=== PATIENT | female | born 1980 | race Two or more races ===

== ENCOUNTER → 2017-11-03 | Outpatient (CLI) | payer MEDICAID ==
[2017-11-03 07:15] LABS: Basophils # (auto) 0 uL; Hemoglobin 8.4 g/dL (12.2-16.2); Lymphocytes # (auto) 1.5 uL; Monocytes # (auto) 0.4 uL; Nucleated Red Blood Cells % 0.1 %
[2017-11-03 07:18] LABS: Basophils % (auto) 0.4 % (0.0-2.0); Eosinophils # (auto) 0.2 uL; Eosinophils % (auto) 2.2 % (0.0-7.0); Hematocrit 27.5 % (36.0-46.0); Lymphocytes % (auto) 20.1 % (10.0-50.0); Mean Corpuscular Hemoglobin 19.4 pg (28.0-32.0); Mean Corpuscular Hgb Conc. 30.7 g/dL (32.0-36.0); Mean Corpuscular Volume 63.2 fL (80.0-100.0); Monocytes % (auto) 5.7 % (0.0-12.0); Neutrophils # (auto) 5.2 uL; Neutrophils % (auto) 71.6 % (37.0-80.0); Platelet Count (auto) 335 10^3/uL (140-450); Red Blood Cells 4.35 10^6/uL (4.0-5.20); Red Cell Distribution Width 19.6 % (11.8-14.3); White Blood Cell 7.3 10^3/uL (4.4-10.8)
[2017-11-03 08:46] LABS: Alcohol, Urine < 3.0 mg/dL (0-5); Amphetamine Screen, Urine NEGATIVE (NEGATIVE); Barbiturate Scree,Urine NEGATIVE (NEGATIVE); Benzodiazephine Screen, Urine NEGATIVE (NEGATIVE); Cannabinoid Screen, Urine NEGATIVE (NEGATIVE); Cocaine Screen, Urine NEGATIVE (NEGATIVE); Opiate Scree,Urine NEGATIVE (NEGATIVE); Phencyclidine Screen, Urine NEGATIVE (NEGATIVE)
[2017-11-03 09:00] LABS: RUBELLA Positive
[2017-11-04 04:08] LABS: RPR Non Reactive (Non Reactive)
== END | disposition home or self-care (01) ==
LOC: LAB 08:00
PROVIDERS: ATTEND Obstetrics & Gynecology
DX: O09.90 Supervision of high risk pregnancy, unspecified, unspecified trimester (principal); Z3A.00 Weeks of gestation of pregnancy not specified
CPT/HCPCS: 36415; 80307; 81220; 82951; 84702; 85025; 86592; 86703; 86762; 86850; 86900; 86901; 87086; 87340

== ENCOUNTER → 2018-02-03 | Outpatient (CLI) | payer MEDICAID | END | disposition home or self-care (01) | LOC: LAB 10:56 | PROVIDERS: ATTEND Obstetrics & Gynecology | DX: Z34.80 Encounter for supervision of other normal pregnancy, unspecified trimester (principal); R73.09 Other abnormal glucose; Z3A.00 Weeks of gestation of pregnancy not specified | CPT/HCPCS: 36415; 83036 ==

== ENCOUNTER 2018-04-16 11:34 | Observation (INO) | payer MEDICAID ==
[2018-04-16] MEDS ORDERED: FERR27TA2 PO (12:12)
[2018-04-16] MEDS ORDERED: PREN-96 PO (12:12)
== END 2018-04-16 12:30 | disposition home or self-care (01) | DRG 566 ==
LOC: LDRP 11:34
PROVIDERS: ADMIT Obstetrics & Gynecology; ATTEND Obstetrics & Gynecology
DX: O24.419 Gestational diabetes mellitus in pregnancy, unspecified control (principal); O09.523 Supervision of elderly multigravida, third trimester; Z3A.30 30 weeks gestation of pregnancy
CPT/HCPCS: 59025; 76818; 81002; 82948; 82962; G0378

== ENCOUNTER 2018-04-20 10:30 | Observation (INO) | payer MEDICAID ==
[~2018-04-20 10:30] MED LIST: FERR27TA2 PO; PREN-96 PO
== END 2018-04-20 12:15 | disposition home or self-care (01) | DRG 566 ==
LOC: LDRP 10:30
PROVIDERS: ADMIT Obstetrics & Gynecology; ATTEND Obstetrics & Gynecology
DX: O24.419 Gestational diabetes mellitus in pregnancy, unspecified control (principal); O09.523 Supervision of elderly multigravida, third trimester; Z3A.30 30 weeks gestation of pregnancy
CPT/HCPCS: 59025; 76818; 81002; G0378

== ENCOUNTER 2018-04-29 10:06 | Observation (INO) | payer MEDICAID ==
[2018-04-29] MEDS ORDERED: GLYB2.5T8 PO (11:01)
== END 2018-04-29 11:20 | disposition home or self-care (01) | DRG 566 ==
LOC: LDRP 10:06
PROVIDERS: ADMIT Specialist; ATTEND Specialist
DX: O24.419 Gestational diabetes mellitus in pregnancy, unspecified control (principal); O09.523 Supervision of elderly multigravida, third trimester; Z3A.32 32 weeks gestation of pregnancy
CPT/HCPCS: 59025; 76818; 81002; 82948; 82962; G0378

== ENCOUNTER 2018-05-04 11:30 | Observation (INO) | payer MEDICAID ==
[~2018-05-04 11:30] MED LIST changes: +GLYB2.5T8 PO
== END 2018-05-04 13:30 | disposition home or self-care (01) | DRG 566 ==
LOC: LDRP 11:30
PROVIDERS: ADMIT Obstetrics & Gynecology; ATTEND Obstetrics & Gynecology
DX: O24.419 Gestational diabetes mellitus in pregnancy, unspecified control (principal); Z3A.32 32 weeks gestation of pregnancy
CPT/HCPCS: 59025; 76818; 81002; 82948; 82962; G0378

== ENCOUNTER 2018-05-13 10:10 | Observation (INO) | payer MEDICAID | END 2018-05-13 11:20 | disposition home or self-care (01) | DRG 566 | LOC: LDRP 10:10 | PROVIDERS: ADMIT Obstetrics & Gynecology; ATTEND Obstetrics & Gynecology | DX: O24.419 Gestational diabetes mellitus in pregnancy, unspecified control (principal); O09.523 Supervision of elderly multigravida, third trimester; Z3A.34 34 weeks gestation of pregnancy | CPT/HCPCS: 59025; 76818; 81002; G0378 ==

== ENCOUNTER 2018-05-17 11:10 | Observation (INO) | payer MEDICAID ==
[~2018-05-17] VITALS: Ht 165.1 cm; Wt 108.9 kg
== END 2018-05-17 12:35 | disposition home or self-care (01) | DRG 566 ==
LOC: LDRP 11:10 → INTOOBSV 11:32 → OBSVTOIN 11:32
PROVIDERS: ADMIT Obstetrics & Gynecology; ATTEND Obstetrics & Gynecology
DX: O24.419 Gestational diabetes mellitus in pregnancy, unspecified control (principal); O09.523 Supervision of elderly multigravida, third trimester; Z3A.34 34 weeks gestation of pregnancy
CPT/HCPCS: 59025; 76818; 81002; 82948; G0378

== ENCOUNTER 2018-05-20 19:57 | Observation (INO) | payer MEDICAID | END 2018-05-20 21:10 | disposition home or self-care (01) | DRG 566 | LOC: LDRP 19:57 | PROVIDERS: ADMIT Specialist; ATTEND Specialist | DX: O24.419 Gestational diabetes mellitus in pregnancy, unspecified control (principal); O09.523 Supervision of elderly multigravida, third trimester; Z3A.35 35 weeks gestation of pregnancy | CPT/HCPCS: 59025; 76818; 81002; 82948; G0378 ==

== ENCOUNTER 2018-05-24 11:00 | Observation (INO) | payer MEDICAID | END 2018-05-24 12:15 | disposition home or self-care (01) | DRG 566 | LOC: LDRP 11:00 | PROVIDERS: ADMIT Specialist; ATTEND Specialist | DX: O24.419 Gestational diabetes mellitus in pregnancy, unspecified control (principal); O09.523 Supervision of elderly multigravida, third trimester; Z3A.35 35 weeks gestation of pregnancy | CPT/HCPCS: 59025; 76818; 81002; 82962; G0378 ==

== ENCOUNTER 2018-05-27 11:06 | Observation (INO) | payer MEDICAID | END 2018-05-27 13:15 | disposition home or self-care (01) | DRG 566 | LOC: LDRP 11:06 | PROVIDERS: ADMIT Specialist; ATTEND Specialist | DX: O24.419 Gestational diabetes mellitus in pregnancy, unspecified control (principal); O09.523 Supervision of elderly multigravida, third trimester; Z3A.36 36 weeks gestation of pregnancy | CPT/HCPCS: 59025; 76818; 81002; 82948; 82962; G0378 ==

== ENCOUNTER 2018-05-31 11:01 | Observation (INO) | payer MEDICAID | END 2018-05-31 12:15 | disposition home or self-care (01) | DRG 566 | LOC: LDRP 11:01 | PROVIDERS: ADMIT Obstetrics & Gynecology; ATTEND Obstetrics & Gynecology | DX: O24.419 Gestational diabetes mellitus in pregnancy, unspecified control (principal); O09.523 Supervision of elderly multigravida, third trimester; Z3A.36 36 weeks gestation of pregnancy | CPT/HCPCS: 59025; 76818; 81002; G0378 ==

== ENCOUNTER 2018-06-03 19:58 | Observation (INO) | payer MEDICAID | END 2018-06-03 21:05 | disposition home or self-care (01) | DRG 566 | LOC: LDRP 19:58 | PROVIDERS: ADMIT Specialist; ATTEND Specialist | DX: O24.419 Gestational diabetes mellitus in pregnancy, unspecified control (principal); O09.523 Supervision of elderly multigravida, third trimester; Z3A.37 37 weeks gestation of pregnancy | CPT/HCPCS: 59025; 76818; 81002; 82962; G0378 ==

== ENCOUNTER 2018-06-07 11:14 | Observation (INO) | payer MEDICAID | END 2018-06-07 13:00 | disposition home or self-care (01) | DRG 566 | LOC: LDRP 11:14 | PROVIDERS: ADMIT Obstetrics & Gynecology; ATTEND Obstetrics & Gynecology | DX: O24.419 Gestational diabetes mellitus in pregnancy, unspecified control (principal); O09.523 Supervision of elderly multigravida, third trimester; Z3A.37 37 weeks gestation of pregnancy | CPT/HCPCS: 59025; 76818; 81002; 82948; G0378 ==

== ENCOUNTER 2018-06-10 18:56 | Observation (INO) | payer MEDICAID | END 2018-06-10 20:01 | disposition home or self-care (01) | DRG 566 | LOC: LDRP 18:56 | PROVIDERS: ADMIT Specialist; ATTEND Specialist | DX: O24.419 Gestational diabetes mellitus in pregnancy, unspecified control (principal); O09.523 Supervision of elderly multigravida, third trimester; Z3A.38 38 weeks gestation of pregnancy | CPT/HCPCS: 59025; 76818; 81002; 82962; G0378 ==

== ENCOUNTER 2018-06-14 13:37 | Observation (INO) | payer MEDICAID ==
[~2018-06-14] VITALS: Ht 165.1 cm; Wt 108.9 kg
== END 2018-06-15 20:23 | disposition home or self-care (01) | DRG 566 ==
LOC: LDRP 06-15 18:49
PROVIDERS: ADMIT Obstetrics & Gynecology; ATTEND Obstetrics & Gynecology
DX: O24.419 Gestational diabetes mellitus in pregnancy, unspecified control (principal); O09.523 Supervision of elderly multigravida, third trimester; Z3A.38 38 weeks gestation of pregnancy
CPT/HCPCS: 59025; 76818; 81002; G0378

== ENCOUNTER 2018-06-17 22:00 | Inpatient (IN) | payer MEDICAID ==
[~2018-06-17] VITALS: Ht 165.1 cm; Wt 113.4 kg
[2018-06-17] MEDS ORDERED: LACT. RINGERS/OXYTOCIN 20UNITS 1,000 ML IV SCH (22:10)
[2018-06-17] MEDS ORDERED: DERMOPLAST 60ML BOTTLE TOP PRN (22:15)
[2018-06-17] MEDS ORDERED: LIDOCAINE 2%HCL (LOCAL ANESTH.) INJ 20ML MDV ID PRN (22:15)
[2018-06-17] MEDS ORDERED: WITCH HAZEL-GLYCERIN PAD TOP PRN (22:15)
[2018-06-17] MEDS ORDERED: METHYLERGONOVINE MALEATE 0.2 MG/ML AMP IM PRN (22:15)
[2018-06-17] MEDS ORDERED: PHISODERM TOP SOLN 240ML BTL TOP PRN (22:15)
[2018-06-17] MEDS: LACTATED RINGER'S 1,000 ML IV SCH (22:45)
[2018-06-17 22:57] LABS: Basophils # (auto) 0 uL; Basophils % (auto) 0.2 % (0.0-2.0); Eosinophils # (auto) 0.1 uL; Eosinophils % (auto) 0.8 % (0.0-7.0); Hematocrit 33.5 % (36.0-46.0); Hemoglobin 10.8 g/dL (12.2-16.2); Lymphocytes # (auto) 1.3 uL; Lymphocytes % (auto) 14.4 % (10.0-50.0); Mean Corpuscular Hemoglobin 25.7 pg (28.0-32.0); Mean Corpuscular Hgb Conc. 32.2 g/dL (32.0-36.0); Mean Corpuscular Volume 79.7 fL (80.0-100.0); Monocytes # (auto) 0.6 uL; Monocytes % (auto) 6.8 % (0.0-12.0); Neutrophils # (auto) 7.1 uL; Neutrophils % (auto) 77.8 % (37.0-80.0); Nucleated Red Blood Cells % 0.1 %; Platelet Count (auto) 240 10^3/uL (140-450); Red Cell Distribution Width 16.6 % (11.8-14.3); White Blood Cell 9.2 10^3/uL (4.4-10.8)
[2018-06-17 23:04] LABS: Urine Bacteria NONE SEEN /hpf (None Seen); Urine Blood Negative /uL (Negative); Urine Mucus FEW (None Seen); Urine Specific Gravity 1.015 (1.001-1.035); Urine WBC 6 /hpf (0 - 5)
[2018-06-17 23:11] LABS: Albumin 2.5 g/dL (3.4-5.0); BUN/Creatinine Ratio 13.7; Calcium 8.4 mg/dL (8.5-10.1); Potassium 3.9 mmol/L (3.5-5.1)
[2018-06-17 23:12] LABS: INR 0.92 (0.9-1.15); Prothrombin Time 9.9 sec (9.27-12.13)
[2018-06-17] MEDS ORDERED: ONDANSETRON HCL 4 MG/2 ML VIAL IV PRN (23:15)
[2018-06-17] MEDS ORDERED: BUTORPHANOL TARTRATE 2 MG/1 ML VIAL IV PRN (23:15)
[2018-06-17 23:19] LABS: Bilirubin, Total 0.3 mg/dL (0.2-1.0); Total Protein 6.9 g/dL (6.4-8.2)
[2018-06-17 23:22] LABS: Alcohol, Urine < 3.0 mg/dL (0-5); Amphetamine Screen, Urine NEGATIVE (NEGATIVE); Barbiturate Scree,Urine NEGATIVE (NEGATIVE); Benzodiazephine Screen, Urine NEGATIVE (NEGATIVE); Cannabinoid Screen, Urine NEGATIVE (NEGATIVE); Cocaine Screen, Urine NEGATIVE (NEGATIVE); Opiate Scree,Urine NEGATIVE (NEGATIVE); Phencyclidine Screen, Urine NEGATIVE (NEGATIVE)
[2018-06-18] MEDS: ACCU-CHEK COMFORT CURVE STRIP VI SCH ×3 (00:10→22:20)
[2018-06-18] MEDS: LACTATED RINGER'S 1,000 ML IV SCH ×5 (03:21→15:30)
[2018-06-18] MEDS ORDERED: fentaNYL W ROPIVACAINE 150 ML EPI SCH (09:15)
[2018-06-18] MEDS ORDERED: ePHEDrine SULFATE 50 MG/ML AMP IV ONE (09:15)
[2018-06-18] MEDS ORDERED: NALOXONE HCL 0.4 MG/ML VIAL IV ONE (09:15)
[2018-06-18] MEDS ORDERED: PROMETHAZINE HCL 25 MG/ML 1ML IM ONE (18:15)
[2018-06-18] MEDS ORDERED: NALBUPHINE HCL 10 MG/1ml INJECTION IV PRN (18:15)
[2018-06-18] MEDS: IBUPROFEN 600 MG TAB PO PRN (19:50)
--- NOTE | 2018-06-18 20:00 | NUR ---
Teaching: Reviewed information in [facility] booklet with patient. Discussed benefits of and risks associated with not . Discussed different positions, proper latch, feeding cues, and baby-led . Provided information of medication side effects related to . All questions and concerns addressed at this time. Patient verbalized understanding of information.
--- NOTE | 2018-06-18 21:00 | NUR ---
Ambulation: Patient OOB with standby assistance by RN. Patient ambulated to bathroom with steady gait. Patient able to void without difficulty- 500ml. [facility] teaching provided with returned demonstration by patient. Clean gown provided and bed linen changed. Patient ambulated back to bed with steady gait and no distress noted.
--- NOTE | 2018-06-18 22:36 | NUR ---
Nipple shield given to patient, education and demonstration provided. Patient returns demonstration, verbalizes understanding. Infant begins to feed well, no difficulty noted.
[2018-06-18 22:52] VITALS: BP 111/71
[2018-06-19] MEDS: IBUPROFEN 600 MG TAB PO PRN ×2 (00:22→18:45)
[2018-06-19 03:00] VITALS: BP 100/50
[2018-06-19 05:51] LABS: Basophils # (auto) 0 uL; Eosinophils # (auto) 0 uL; Hemoglobin 9.5 g/dL (12.2-16.2); Lymphocytes # (auto) 1.2 uL
[2018-06-19 05:53] LABS: Basophils % (auto) 0.2 % (0.0-2.0); Hematocrit 28.8 % (36.0-46.0); Lymphocytes % (auto) 8.7 % (10.0-50.0); Mean Corpuscular Hemoglobin 26.5 pg (28.0-32.0); Mean Corpuscular Hgb Conc. 32.9 g/dL (32.0-36.0); Mean Corpuscular Volume 80.7 fL (80.0-100.0); Monocytes % (auto) 7.3 % (0.0-12.0); Neutrophils # (auto) 11.4 uL; Neutrophils % (auto) 83.8 % (37.0-80.0); Platelet Count (auto) 214 10^3/uL (140-450); Red Blood Cells 3.57 10^6/uL (4.0-5.20); Red Cell Distribution Width 16.6 % (11.8-14.3); White Blood Cell 13.6 10^3/uL (4.4-10.8)
[2018-06-19 06:46] VITALS: BP 101/54
[2018-06-19 07:07] LABS: RPR Non Reactive (Non Reactive)
[2018-06-19 11:05] VITALS: BP 115/56
[2018-06-19 15:10] VITALS: BP 109/57
[2018-06-19] MEDS ORDERED: INFLUENZA QUAD 2018-2019 0.5 ML SYRG IM ONE (17:00)
[2018-06-19 19:00] VITALS: BP 124/60
[2018-06-19] MEDS ORDERED: TETANUS-DIPTH-ACEL PERTUSSIS 0.5ML SYRG IM ONE (19:00)
[2018-06-19 22:53] VITALS: BP 108/53
[2018-06-20 02:48] VITALS: BP 124/65
[2018-06-20 06:40] VITALS: BP 108/58
[2018-06-20] MEDS: IBUPROFEN 600 MG TAB PO PRN (07:02)
[2018-06-20] MEDS ORDERED: FERROUS SULFATE 325 MG TAB PO ONE (08:45)
--- NOTE | 2018-06-20 08:48 | NUR ---
PER DR. SHRESTHA GIVE ONE 325 MG/ IRON TAB /PO AND CALL IN MEDICATION TO PHARMACY OF CHOICE 325 MG IRON TAB/PO/BID/#60 TIMES 3 RE-FILLS.
--- NOTE | 2018-06-20 09:16 | NUR ---
CALLED PHARMACY OF PATIENT [facility] IN [place] PHONE NUMBER [phone] AND LEFT DETAILED MESSAGE INSTRUCTED BY RECORDER OF PHARMACY.
--- NOTE | 2018-06-20 09:31 | NUR ---
0800 Discharge: Discharge instructions given as ordered. Pt encouraged to follow up with [facility] as instructed. All questions and concerns addressed. Patient verbalized understanding. Medication reconciliation completed and copy given to patient. All required/requested vaccines given and copies of vaccinations given to patient. Patient encouraged to prepare to depart unit.
[2018-06-20 09:54] VITALS: BP 126/62
--- NOTE | 2018-06-20 11:05 | NUR ---
Discharge: Patient taken to vehicle via wheelchair with all personal belongings, accompanied by staff and family member. No distress noted at time of departure, no adverse changes in status since initial assessment.
== END 2018-06-20 11:05 | disposition home or self-care (01) | DRG 560 ==
LOC: LDRP 22:00
PROVIDERS: ADMIT Obstetrics & Gynecology; ATTEND Obstetrics & Gynecology
PROC: 10E0XZZ Delivery of Products of Conception, External Approach (ICD-10-PCS; principal; 2018-06-18)
PROC: 10907ZC Drainage of Amniotic Fluid, Therapeutic from Products of Conception, Via Natural or Artificial Opening (ICD-10-PCS; 2018-06-18)
DX: O69.1XX0 Labor and delivery complicated by cord around neck, with compression, not applicable or unspecified (principal); K83.1 Obstruction of bile duct; O26.62 Liver and biliary tract disorders in childbirth; O24.429 Gestational diabetes mellitus in childbirth, unspecified control; O99.02 Anemia complicating childbirth; D64.9 Anemia, unspecified; Z3A.39 39 weeks gestation of pregnancy; Z37.0 Single live birth
CPT/HCPCS: 36415; 59025; 59409; 80053; 80307; 81001; 82947; 82948; 82962; 85025; 85610; 85730; 86592; 86850; 86900; 86901; 90472; 90674; 90686; 90715; 94760; 96361; 96365; 96366; 96372; 96374; 96375; G0378; J2590; J3010